=== PATIENT | female | born 1970 | race Caucasian/White ===

== ENCOUNTER 2019-08-02 02:45 | Emergency (ER) | payer SELFPAY ==
[~2019-08-02] VITALS: Ht 146 cm; Wt 156.0 kg
--- OUTSIDE RECORDS SUMMARY | 2019-08-02 02:53 | XMS REPORT | Continuity of Care Document ---
Author Organization Unknown Address Unknown Phone Unavailable Allergies There is no data. Medications Medication Packaging Start Date St op Date Route Dosage Sig KETOROLAC INJ, 60 MG (TORADOL) 04/12/2018 04/12/2018 INTRAMUSCULAR 1 Problems Date Dx Coded Attending Type Code Diagnosis Diagnosed By 04/12/2018 SARMAD KELLY [id number] Acute pain due to trauma 04/12/2018 SARMAD KELLY [id number] Pain in left knee Procedures There is no data. Results Test Result Range PDM - 09 PANEL (PROFILE 1) - 05/04/18 10 :21 Prescribed Drug 1 Percocet(TM) NRG Creatinine 48.2 mg/dL > or = 20.0 pH 6.19 4.5 - 9.0 Oxidant NEGATIVE mcg/mL <200 Amphetamines POSITIVE ng/mL <500 Benzodiazepines NEGATIVE ng/mL <100 medMATCH Benzodiazepines CONSISTENT NRG Marijuana Metabolite POSITIVE ng/mL <20 Cocaine Metabolite NEGATIVE ng/mL <150 medMATCH Cocaine Metab CONSISTENT NRG Opiates NEGATIVE ng/mL <100 medMATCH Opiates CONSISTENT NRG Oxycodone NEGATIVE ng/mL <100 medMATCH Oxycodone INCONSISTENT NRG COMMENT NRG Amphetamine 649 ng/mL <250 medMATCH Amphetamine INCONSISTENT NRG Methamphetamine NEGATIVE ng/mL <250 medMATCH Methamphetamine CONSISTENT NRG Marijuana Metabolite 55 ng/mL <5 medMATCH Marijuana Metab INCONSISTENT N RG Barbiturates NEGATIVE ng/mL <300 medMATCH Barbiturates CONSISTENT NRG Methadone Metabolite NEGATIVE ng/mL <100 medMATCH Methadone Metab CONSISTENT NRG Phencyclidine NEGATIVE ng/mL <25 medMATCH Phencyclidine CONSISTENT NRG PDM - 09 PANEL (PROFILE 1) - 07/17/18 13 :19 Creatinine 150.6 mg/dL > or = 20.0 pH 6.87 4.5 - 9.0 Oxidant NEGATIVE mcg/mL <200 Amphetamines POSITIVE ng/mL <500 Benzodiazepines NEGATIVE CONFIRMED ng/mL <100 Marijuana Metabolite POSITIVE ng/mL <20 Cocaine Metabolite NEGATIVE ng/mL <150 medMATCH Cocaine Metab CONSISTENT NRG Opiates NEGATIVE CONFIRMED ng/mL <100 Oxycodone POSITIVE ng/mL <100 COMMENT NRG Amphetamine 4474 ng/mL <250 medMATCH Amphetamine INCONSISTENT NRG Methamphetamine NEGATIVE ng/mL <250 medMATCH Methamphetamine CONSISTENT NRG Alphahydroxyalprazolam NEGATIVE ng/mL <25 medMATCH aOH alprazolam CONSISTENT NRG Alphahydroxymidazolam NEGATIVE ng/mL < 50 medMATCH aOH midazolam CONSISTENT NRG Alphahydroxytriazolam NEGATIVE ng/mL < 50 medMATCH aOH triazolam CONSISTENT NRG Aminoclonazepam NEGATIVE ng/mL <25 medMATCH Aminoclonazepam CONSISTENT NRG Hydroxyethylflurazepam NEGATIVE ng/mL <50 medMATCH OH,Et flurazepam CONSISTENT NR G Lorazepam NEGATIVE ng/mL <50 medMATCH Lorazepam CONSISTENT NRG Nordiazepam NEGATIVE ng/mL <50 medMATCH Nordiazepam CONSISTENT NRG Oxazepam NEGATIVE ng/mL <50 medMATCH Oxazepam CONSISTENT NRG Temazepam NEGATIVE ng/mL <50 medMATCH Temazepam CONSISTENT NRG Codeine NEGATIVE ng/mL <50 medMATCH Codeine CONSISTENT NRG Hydrocodone NEGATIVE ng/mL <50 medMATCH Hydrocodone CONSISTENT NRG Hydromorphone NEGATIVE ng/mL <50 medMATCH Hydromorphone CONSISTENT NRG Morphine NEGATIVE ng/mL <50 medMATCH Morphine CONSISTENT NRG Norhydrocodone NEGATIVE ng/mL <50 medMATCH Norhydrocodone CONSISTENT NRG Marijuana Metabolite 19 ng/mL <5 medMATCH Marijuana Metab INCONSISTENT N RG Noroxycodone 3125 ng/mL <50 medMATCH Noroxycodone INCONSISTENT NRG Oxycodone 1409 ng/mL <50 medMATCH Oxycodone INCONSISTENT NRG Oxymorphone 990 ng/mL <50 medMATCH Oxymorphone INCONSISTENT NRG Barbiturates NEGATIVE ng/mL <300 medMATCH Barbiturates CONSISTENT NRG Methadone Metabolite NEGATIVE ng/mL <100 medMATCH Methadone Metab CONSISTENT NRG Phencyclidine NEGATIVE ng/mL <25 medMATCH Phencyclidine CONSISTENT NRG ESR/SED RATE - 07/17/18 14:59 SED RATE BY MODIFIED WESTERGREN 31 mm/h < OR = 20 RA (RHEUMATOID) FACTOR - 07/17/18 14:59 RHEUMATOID FACTOR 55 IU/mL <14 GARRETT - 07/17/18 14:59 GARRETT SCREEN, IFA NEGATIVE NEGATIVE VITAMIN B12 - 07/17/18 14:59 VITAMIN B12 419 pg/mL 200-1100 VITAMIN D, 25-H - 07/17/18 14:59 VITAMIN D,25-OH,TOTAL,IA 14 ng/mL 30-10 0 VITAMIN B1 (THIAMINE) - 07/17/18 14:59 VITAMIN B1 (THIAMINE), BLOOD, LC/MS/MS 128 nmol/L 78-185 VITAMIN D, 25-H - 01/23/19 08:50 VITAMIN D,25-OH,TOTAL,IA 24 ng/mL 30-10 0 PDM - 09 PANEL (PROFILE 1) - 03/01/19 13 :06 Prescribed Drug 1 Aceta w/Codeine NRG Creatinine 133.1 mg/dL > or = 20.0 pH 6.2 4.5-9.0 Oxidant NEGATIVE mcg/mL <200 Amphetamines POSITIVE ng/mL <500 Benzodiazepines NEGATIVE ng/mL <100 medMATCH Benzodiazepines CONSISTENT NRG Marijuana Metabolite POSITIVE ng/mL <20 Cocaine Metabolite NEGATIVE ng/mL <150 medMATCH Cocaine Metab CONSISTENT NRG Opiates NEGATIVE ng/mL <100 medMATCH Opiates INCONSISTENT NRG Oxycodone NEGATIVE ng/mL <100 medMATCH Oxycodone INCONSISTENT NRG COMMENT NRG Amphetamine 5598 ng/mL <250 medMATCH Amphetamine INCONSISTENT NRG Methamphetamine NEGATIVE ng/mL <250 medMATCH Methamphetamine CONSISTENT NRG Prescribed Drug 2 Percocet(TM) NRG Marijuana Metabolite 33 ng/mL <5 medMATCH Marijuana Metab INCONSISTENT N RG Barbiturates NEGATIVE ng/mL <300 medMATCH Barbiturates CONSISTENT NRG Methadone Metabolite NEGATIVE ng/mL <100 medMATCH Methadone Metab CONSISTENT NRG Phencyclidine NEGATIVE ng/mL <25 medMATCH Phencyclidine CONSISTENT NRG Encounters ACCT No. Visit Date/Time Discharge Status Pt. Type Provider Facility Loc./Unit Complaint [id number] 04/12/2018 11:52:00 04/12/2018 13:30: 00 DIS Emergency BUTHERUS, BEAU A 0 14 LEG INJURY [id number] 02/13/2019 09:00:00 02/13/2019 23:59: 59 CLS Outpatient [facility] [id number] 03/01/2019 12:40:00 Document Registration [id number] 01/23/2019 08:00:00 Document Registration [id number] 07/17/2018 14:00:00 Document Registration [id number] 07/17/2018 13:20:00 Document Registration [id number] 05/04/2018 09:20:00 Document Registration
--- NOTE | 2019-08-02 02:58 | ED Cough/URI ---
General Chief Complaint: Respiratory Problems Stated Complaint: COPD Source: patient Exam Limitations: no limitations History of Present Illness Date Seen by Provider: August 02, 2019 Time Seen by Provider: 02:45 Initial Comments The patient is an obese 49-year-old female brought in by EMS for evaluation of cough, shortness of breath, nasal congestion, headache, and fever over the last 2 days. Her primary complaint is shortness of breath. She reports a history of COPD and states that she ran out of her albuterol Nebules for her nebulizer machine several days ago. EMS gave the patient a DuoNeb treatment and she immediately felt much better. She states that she has had sinus infections in the past that gave her similar symptoms. She has been noticing some wheezing over the last few days. She uses CPAP to sleep at night. Additionally, she rep orts a history of hypertension. She is alert and oriented 4, calm, and appears to be in no distress upon arrival. She is afebrile at this time. She denies any known sick contacts. Timing/Duration: other (2 days) Severity/Quality: dry cough Prior Episodes/Possible Cause: occasional episodes Modifying Factors: Improves With Albuterol Nebulizer (with EMS helped significantly) Associated Symptoms: cough, fever/chills, headache, shortness of breath, sinus infection Allergies and Home Medications Allergies Coded Allergies: No Known Drug Allergies (Unverified , 08/02/19) Patient Home Medication List Home Medication List Reviewed: Yes Review of Systems Review of Systems Constitutional: fever EENTM: nose congestion Respiratory: cough, short of breath, wheezing Cardiovascular: no symptoms reported Gastrointestinal: no symptoms reported Genitourinary: no symptoms reported Musculoskeletal: no symptoms reported Skin: no symptoms reported Psychiatric/Neurological: No Symptoms Reported Hematologic/Lymphatic: No Symptoms Reported Immunological/Allergic: no symptoms reported All Other Systems Reviewed Negative Unless Noted: Yes Past Bukfsfo-Fijfwt-Fqmdbs Hx Past Med/Social Hx: Reviewed Nursing Past Med/Soc Hx Patient Social History Recent Foreign Travel: No Contact w/Someone Who Travel: No Physical Exam Vital Signs - First Documented 08/02/19 03:00 Temp 37.0 Pulse 119 Resp 20 B/P (MAP) 171/133 (146) O2 Delivery Room Air Capillary Refill : Height: '" Weight: lbs. oz. kg; BMI Method: General Appearance: WD/WN, no apparent distress, obese Eyes: Bilateral Eye Normal Inspection, Bilateral Eye PERRL, Bilateral Eye EOMI HEENT: PERRL/EOMI, pharynx normal, other (nasal congestion present) Neck: full range of motion, supple Respiratory: lungs clear, no respiratory distress, no accessory muscle use, decreased breath sounds, wheezing (mild) Cardiovascular: regular rate, rhythm, no edema, no murmur Gastrointestinal: normal bowel sounds, non tender, soft, no pulsatile mass Extremities: non-tender, normal inspection, no pedal edema Neurologic/Psychiatric: no motor/sensory deficits, alert, normal mood/affect, oriented x 3 Skin: normal color, warm/dry Progress/Results/Core Measures Suspected Sepsis SIRS Temperature: Pulse: Respiratory Rate: Blood Pressure / Mean: Results/Orders Micro Results Microbiology 08/02/19 Influenza Types A,B Antigen (YUVAL) - Final, Complete My Orders Orders - JOYCE MORA DO Influenza A And B Antigens (08/02/19 02:50) Chest Pa/Lat (2 View) (08/02/19 02:50) Prednisone Tablet (Deltasone Tablet) (08/02/19 03:15) Medications Given in ED Current Medications Medications Dose Ordered Sig/Anneliese Route Start Time Stop Time Status Last Admin Dose Admin Prednisone 50 mg ONCE ONCE PO 08/02/19 03:15 08/02/19 03:16 DC 08/02/19 03:21 50 MG Vital Signs/I&O 08/02/19 03:00 Temp 37.0 Pulse 119 Resp 20 B/P (MAP) 171/133 (146) O2 Delivery Room Air Capillary Refill : Progress Note : Progress Note @0335 - Influenza negative and chest x-ray shows no acute findings. Advised the patient to stop vaping. She'll go home with a prescription for albuterol nebules, azithromycin, and prednisone. Advised the patient to continue staying at home and to continue self quarantining at least for the next 2 weeks. Based on her symptoms today and chest x-ray I do not feel that she needs to be tested for the coronavirus. Advised patient to follow up with her PCP in the next 2-3 days and to return to the emergency Department immediately for new or worsening symptoms. The patient expresses verbal understanding and agreement with the plan and is stable for discharge. Departure Impression Primary Impression: Flu-like symptoms Additional Impression: COPD exacerbation Disposition: HOME, SELF-CARE Condition: Stable Departure-Patient Inst. Decision time for Depature: 03:43 Referrals: [facility] [place] Instructions: Exacerbation of COPD (DC), Viral Syndrome (DC) Add. Discharge Instructions: Take the prescribed medicines as directed. Follow-up with your doctor in the next 1-2 days. Return to the Emergency Department immediately for new or worsening symptoms. Scripts Prednisone (Prednisone) 20 Mg Tab 40 MG PO DAILY, #6 TAB 0 Refills Prov: JOYCE MORA DO 08/02/19 Azithromycin (Azithromycin) 250 Mg Tablet 250 MG PO UD, #6 TAB TAKE 2 TABLETS ON DAY ONE THEN TAKE 1 TABLET DAILY FOR FOUR MORE DAYS Prov: JOYCE MORA DO 08/02/19 Albuterol Sulfate (Albuterol Sulfate) 2.5 Mg/3 Ml Vial.neb 2.5 MG INH Q4H PRN for WHEEZING, #50 EA 1 Refill Prov: JOYCE MORA DO 08/02/19 JOYCE MORA DO August 02, 2019 02:58
[2019-08-02] MEDS ORDERED: predniSONE 20 MG TAB PO ONE (03:15)
[2019-08-02] MEDS ORDERED: PRD20T PO (03:47)
[2019-08-02] MEDS ORDERED: ALBU2.5V4 INH (03:47)
[2019-08-02] MEDS ORDERED: AZIT250T12 PO (03:47)
[2019-08-02 03:54] VITALS: BP 143/95
--- NOTE | 2019-08-02 07:55 | Diagnostic Imaging Report ---
INDICATION: Shortness of breath and fever FINDINGS: Two views of the chest demonstrate the lungs to be clear. The heart size and vascularity are normal. There are no pleural effusions. IMPRESSION: Negative chest. Dictated by: Dictated on workstation # [id number]
== END 2019-08-02 03:54 | disposition home or self-care (01) ==
LOC: ER FS 02:50
DX: J44.1 Chronic obstructive pulmonary disease with (acute) exacerbation (principal)
CPT/HCPCS: 71046; 87804

== ENCOUNTER 2019-11-16 16:02 | Emergency (ER) | payer SELFPAY ==
[~2019-11-16] VITALS: Ht 152.4 cm; Wt 158.7 kg
[~2019-11-16 16:02] MED LIST: ALBU2.5V4 INH; AZIT250T12 PO; PRD20T PO
[2019-11-16 16:13] VITALS: BP 250/124
[2019-11-16] MEDS ORDERED: IBUP-1780 PO (16:54)
--- NOTE | 2019-11-16 16:54 | ED Lower Extremity ---
General Chief Complaint: Lower Extremity Stated Complaint: RT LEG PAIN Nursing Triage Note: Patient reports she injured her right patellor tendon last winter, states she has had pain off and on. States it began hurting on Tuesday and has not improved. Nursing Sepsis Screen: No Definite Risk Source: patient History of Present Illness Date Seen by Provider: Nov 16, 2019 Time Seen by Provider: 16:30 Initial Comments Patient presents with right knee pain for the past 5 days, worse with movement. Denies any swelling. Pain worse with certain movements and worse with bending, occasionally feels like it is giving out on her. Denies any recent injury. Similar pain in the past although less than one year ago, seen at a different ER and a splint was created for her that she wore for 2 days and then discarded. Never followed up. Allergies and Home Medications Allergies Coded Allergies: No Known Drug Allergies (Unverified , 08/02/19) Home Medications Albuterol Sulfate 2.5 Mg/3 Ml Vial.neb, 2.5 MG INH Q4H PRN for WHEEZING Prescribed by: JOYCE MORA on 08/02/19346 Azithromycin 250 Mg Tablet, 250 MG PO UD TAKE 2 TABLETS ON DAY ONE THEN TAKE 1 TABLET DAILY FOR FOUR MORE DAYS Prescribed by: JOYCE MORA on 08/02/19346 Prednisone 20 Mg Tab, 40 MG PO DAILY Prescribed by: JOYCE MORA on 08/02/19346 Patient Home Medication List Home Medication List Reviewed: Yes Review of Systems Constitutional: no symptoms reported Musculoskeletal: see HPI; No back pain; joint pain (right knee); No joint swelling, No muscle pain Skin: No change in color, No lumps, No rash Psychiatric/Neurological: Denies Numbness, Denies Paresthesia, Denies Weakness Past Kpxpykl-Nqsyul-Ougogl Hx Past Med/Social Hx: Reviewed Nursing Past Med/Soc Hx Patient Social History Alcohol Use: Denies Use Recreational Drug Use: No Smoking Status: Current Everyday Smoker Type Used: Electronic/Vapor 2nd Hand Smoke Exposure: No Recent Foreign Travel: No Contact w/Someone Who Travel: No Recent Infectious Disease Expo: No Recent Hopitalizations: No Physical Abuse: No Sexual Abuse: No Mistreated: No Fear: No Seasonal Allergies Seasonal Allergies: No Past Medical History Surgeries: Yes Section, Gallbladder, Hysterectomy Respiratory: Yes COPD Cardiac: Yes Hypertension Neurological: No Genitourinary: No Gastrointestinal: No Musculoskeletal: No Endocrine: No HEENT: No Cancer: No Psychosocial: Yes Bipolar Integumentary: No Blood Disorders: No Adverse Reaction/Blood Tranf: No Physical Exam Vital Signs Vital Signs - First Documented 11/16/19 16:13 Temp 36.3 Pulse 101 Resp 16 B/P (MAP) 250/124 (166) Pulse Ox 96 O2 Delivery Room Air Capillary Refill : Less Than 3 Seconds Height, Weight, BMI Height: '" Weight: lbs. oz. kg; 68.00 BMI Method: General Appearance: WD/WN, no apparent distress Legs: right leg non-tender, right leg normal inspection, right leg normal range of motion, right leg no evidence of injury Knees: right knee normal inspection, right knee normal range of motion, right knee no evidence of injury, right knee pain (MCL) Ankles: right ankle non-tender, right ankle normal inspection, right ankle normal range of motion, right ankle no evidence of injury Feet: right foot non-tender, right foot normal inspection, right foot normal range of motion, right foot no evidence of injury Neurologic/Tendon: normal sensation, normal motor functions Neurologic/Psychiatric: no motor/sensory deficits Skin: normal color, warm/dry Progress/Results/Core Measures Results/Orders Vital Signs/I&O 11/16/19 16:13 Temp 36.3 Pulse 101 Resp 16 B/P (MAP) 250/124 (166) Pulse Ox 96 O2 Delivery Room Air Blood Pressure Mean: 166 Departure Impression Primary Impression: MCL sprain of right knee Qualified Codes: S83.411A - Sprain of medial collateral ligament of right knee, initial encounter Disposition: 01 HOME, SELF-CARE Condition: Stable Departure-Patient Inst. Decision time for Depature: 16:52 Referrals: JESUS CLARK (PCP/Family) Primary Care Physician Patient Instructions: Knee Sprain (DC) Add. Discharge Instructions: see your PCP in 2 weeks. Wear your knee splint daily and apply ice to your right knee twice daily for 20 minutes. Avoid bending your knee or squatting. All discharge instructions reviewed with patient and/or family. Voiced understanding. Scripts Ibuprofen (Ibuprofen) 800 Mg Tablet 800 MG PO Q8H PRN for PAIN, #30 TAB 0 Refills Prov: NITIN BERGER DO 11/16/19 NITIN BERGER DO Nov 16, 2019 16:54
== END 2019-11-16 17:04 | disposition home or self-care (01) ==
LOC: EDUNIT# 16:02 → ER FS 16:03
DX: S83.411A Sprain of medial collateral ligament of right knee, initial encounter (principal); J44.9 Chronic obstructive pulmonary disease, unspecified; F17.290 Nicotine dependence, other tobacco product, uncomplicated; Z79.52 Long term (current) use of systemic steroids; W19.XXXA Unspecified fall, initial encounter
CPT/HCPCS: 99283; L1830

== ENCOUNTER 2020-04-21 09:01 | Emergency (ER) | payer SELFPAY ==
[~2020-04-21] VITALS: Ht 154.9 cm; Wt 161.6 kg
[~2020-04-21 09:01] MED LIST changes: +IBUP-1780 PO
--- NOTE | 2020-04-21 09:20 | NUR ---
Patient reporting pain free after brief period of rest in ED. Pt states, "I have been rushing all day with a meeting at work and then feeling CP and some SOA. Pt's boss had someone pick her up and drive her here. The employer states please get checked out. Pt is very non-compliant in discussing no follow up with specialist she may have been referred to. Has not went to her [facility] PCP as missed follow up appts for BP checks. Pt reports taking her pysch meds but forgets her BP med as it is not in same location at her home. Discussion of pill systems requirements planner or bubble packs for reminders.
[2020-04-21] MEDS ORDERED: LABETALOL HCL 20 MG/4 ML VIAL IV ONE ×3 (09:30→12:15)
[2020-04-21] MEDS ORDERED: RT-ALBUTEROL/IPRATROPIUM 3 ML (DUONEB) VIAL INH ONE (09:30)
--- NOTE | 2020-04-21 09:40 | Diagnostic Imaging Report ---
INDICATION: Shortness of breath. COMPARISON: 08/02/2019. FINDINGS: There is cardiomegaly and mild venous congestion. There is no pleural effusion, pneumothorax, or pneumonia. The mediastinum is unremarkable. IMPRESSION: Cardiomegaly and mild central pulmonary venous congestion. Dictated by: Dictated on workstation # [id number]
--- NOTE | 2020-04-21 09:55 | NUR ---
Scanned Labetalol 20 mg at 0945 and began very slow IV push 5mg at 0955 (242/131), 5 mg at 0957 (233/122), 5 mg at 0959 (219/120), 5 mg at 1000 (213/119). Pt can not tolerate laying on ER cart as "can't breathe", "my stomach pushes up into my lungs".
[2020-04-21 10:14] LABS: BASOPHILS % (AUTO) 1 % (0-10); EOSINOPHILS % (AUTO) 3 % (0-10); HEMATOCRIT 42 % (35-52); HEMOGLOBIN 13.5 G/DL (11.5-16.0); LYMPHOCYTES # (AUTO) 1.5 X 10^3 (1.0-4.0); LYMPHOCYTES % (AUTO) 22 % (12-44); MEAN CORPUSCULAR HEMOGLOBIN 29 PG (25-34); MEAN CORPUSCULAR HGB CONC 32 G/DL (32-36); MEAN CORPUSCULAR VOLUME 90 FL (80-99); MEAN PLATELET VOLUME 11.8 FL (7.4-10.4); MONOCYTES # (AUTO) 0.5 X 10^3 (0.0-1.0); MONOCYTES % (AUTO) 7 % (0-12); NEUTROPHILS # (AUTO) 4.5 X 10^3 (1.8-7.8); NEUTROPHILS % (AUTO) 67 % (42-75); PLATELET COUNT 166 10^3/uL (130-400); WHITE BLOOD COUNT 6.7 10^3/uL (4.3-11.0)
[2020-04-21 10:15] LABS: EOSINOPHILS # (AUTO) 0.2 10^3/uL (0.0-0.3)
[2020-04-21 10:21] LABS: ALANINE AMINOTRANSFERASE 115 U/L (0-55); ALKALINE PHOSPHATASE 183 U/L (40-136); BILIRUBIN,TOTAL < 0.2 MG/DL (0.1-1.0); BUN/CREATININE RATIO 23; CALCIUM 9.3 MG/DL (8.5-10.1); CARBON DIOXIDE 23 MMOL/L (21-32); CHLORIDE 103 MMOL/L (98-107); CREATININE SERUM 0.77 MG/DL (0.60-1.30); GFR ESTIMATED > 60; GLUCOSE 281 MG/DL (70-105); POTASSIUM 4.3 MMOL/L (3.6-5.0); SODIUM 137 MMOL/L (135-145); TOTAL PROTEIN 7.2 GM/DL (6.4-8.2)
[2020-04-21 10:32] LABS: ABG BASE EXCESS 1.1 MMOL/L (-2.5-2.5); ABG OXYGEN SATURATION 95 % (94-100); ABG PCO2 45 MMHG (35-45); ABG PH 7.38 (7.37-7.43); ABG PO2 78 MMHG (79-93); ALLENS TEST YES-POS; INSPIRED O2 ROOM AIR; PATIENT TEMP 36.4; VENTILATOR NO
--- NOTE | 2020-04-21 10:40 | ED General ---
General Chief Complaint: Chest Pain Stated Complaint: CHEST PAIN | BP 248/112 Source of Information: Patient Exam Limitations: No Limitations History of Present Illness Date Seen by Provider: Apr 21, 2020 Time Seen by Provider: 09:05 Initial Comments Patient is a 50-year-old female with history of COPD, hypertension, cardiomyopathy, bipolar, anxiety, schizoaffective disorder, tobaccoism and medication noncompliance who presents with shortness of breath and hypertension. Patient states she has not taken her blood pressure medication for at least the past 3 days reports increased shortness of breath with light exertion and inability to lie flat. Denies chest pain chest tightness. Does report chronic cough and continues to smoke. Although, the patient is in the process of transitioning to vaping. She denies fever, chills, purulent cough, nausea vomiting sweats. Reports chronic leg swelling but denies unilateral leg pain. Timing/Duration: 1/2 Hour Severity: Moderate Modifying Factors: improves with Other Associated Systoms: Cough, Shortness of Air, Other Allergies and Home Medications Allergies Coded Allergies: No Known Drug Allergies (Unverified , 08/02/19) Home Medications Albuterol Sulfate 2.5 Mg/3 Ml Vial.neb, 2.5 MG INH Q4H PRN for WHEEZING Prescribed by: JOYCE MORA on 08/02/19 0347 Patient Home Medication List Home Medication List Reviewed: Yes Review of Systems Review of Systems Constitutional: see HPI EENTM: see HPI Respiratory: see HPI Cardiovascular: see HPI Gastrointestinal: see HPI Genitourinary: see HPI Musculoskeletal: see HPI Skin: see HPI Psychiatric/Neurological: See HPI, Anxiety Hematologic/Lymphatic: See HPI Immunological/Allergic: see HPI All Other Systems Reviewed Negative Unless Noted: Yes Past Zxtiret-Nkqiml-Ihvgmo Hx Past Med/Social Hx: Reviewed Nursing Past Med/Soc Hx Patient Social History Type Used: Electronic/Vapor 2nd Hand Smoke Exposure: No Recent Hopitalizations: No Seasonal Allergies Seasonal Allergies: No Past Medical History Surgeries: Yes Section, Gallbladder, Hysterectomy Respiratory: Yes COPD Cardiac: Yes Hypertension Neurological: No Genitourinary: No Gastrointestinal: No Musculoskeletal: No Endocrine: No HEENT: No Cancer: No Psychosocial: Yes Bipolar Integumentary: No Blood Disorders: No Adverse Reaction/Blood Tranf: No Physical Exam Vital Signs Vital Signs - First Documented Capillary Refill : Height, Weight, BMI Height: '" Weight: lbs. oz. kg; 68.00 BMI Method: General Appearance: Other Eyes: Bilateral Eye Normal Inspection, Bilateral Eye PERRL, Bilateral Eye EOMI HEENT: PERRL/EOMI, Normal ENT Inspection, Pharynx Normal Neck: Full Range of Motion, Normal Inspection, Supple Respiratory: Decreased Breath Sounds, Wheezing, Other ( tachypneic with conversational dyspnea) Cardiovascular: Regular Rate, Rhythm, No JVD, Other (Negative Homans signs) Gastrointestinal: Normal Bowel Sounds, Non Tender, Soft Back: Normal Inspection, No CVA Tenderness Extremity: Normal Capillary Refill Neurologic/Psychiatric: Alert Skin: Normal Color, Warm/Dry Lymphatic: No Adenopathy Focused Exam Sepsis Stage: Ruled Out Lactate Level 04/21/20 09:52: Lactic Acid Level 1.50 Lactic Acid Level Laboratory Tests Test 04/21/20 09:52 Lactic Acid Level 1.50 MMOL/L (0.50-2.00) Progress/Results/Core Measures Suspected Sepsis SIRS Temperature: Pulse: Respiratory Rate: Laboratory Tests 04/21/20 10:04: White Blood Count 6.7 Blood Pressure / Mean: 04/21/20 09:52: Lactic Acid Level 1.50 Laboratory Tests 04/21/20 09:52: Creatinine 0.77, Total Bilirubin < 0.2 04/21/20 10:04: Platelet Count 166 Results/Orders Lab Results Laboratory Tests Test 04/21/20 09:52 04/21/20 10:04 04/21/20 10:26 Range/Units Sodium Level 137 135-145 MMOL/L Potassium Level 4.3 3.6-5.0 MMOL/L Chloride Level 103 98-107 MMOL/L Carbon Dioxide Level 23 21-32 MMOL/L Anion Gap 11 5-14 MMOL/L Blood Urea Nitrogen 18 7-18 MG/DL Creatinine 0.77 0.60-1.30 MG/DL Estimat Glomerular Filtration Rate > 60 BUN/Creatinine Ratio 23 Glucose Level 281 H 70-105 MG/DL Lactic Acid Level 1.50 0.50-2.00 MMOL/L Calcium Level 9.3 8.5-10.1 MG/DL Corrected Calcium 9.3 8.5-10.1 MG/DL Total Bilirubin < 0.2 0.1-1.0 MG/DL Aspartate Amino Transf (AST/SGOT) 58 H 5-34 U/L Alanine Aminotransferase (ALT/SGPT) 115 H 0-55 U/L Alkaline Phosphatase 183 H 40-136 U/L Troponin I < 0.30 <0.30 NG/ML Pro-B-Type Natriuretic Peptide 1501.0 H <75.0 PG/ML Total Protein 7.2 6.4-8.2 GM/DL Albumin 4.0 3.2-4.5 GM/DL White Blood Count 6.7 4.3-11.0 10^3/uL Red Blood Count 4.67 4.35-5.85 10^6/uL Hemoglobin 13.5 11.5-16.0 G/DL Hematocrit 42 35-52 % Mean Corpuscular Volume 90 80-99 FL Mean Corpuscular Hemoglobin 29 25-34 PG Mean Corpuscular Hemoglobin Concent 32 32-36 G/DL Red Cell Distribution Width 14.7 H 10.0-14.5 % Platelet Count 166 130-400 10^3/uL Mean Platelet Volume 11.8 H 7.4-10.4 FL Immature Granulocyte % (Auto) 1 % Neutrophils (%) (Auto) 67 42-75 % Lymphocytes (%) (Auto) 22 12-44 % Monocytes (%) (Auto) 7 0-12 % Eosinophils (%) (Auto) 3 0-10 % Basophils (%) (Auto) 1 0-10 % Neutrophils # (Auto) 4.5 1.8-7.8 X 10^3 Lymphocytes # (Auto) 1.5 1.0-4.0 X 10^3 Monocytes # (Auto) 0.5 0.0-1.0 X 10^3 Eosinophils # (Auto) 0.2 0.0-0.3 10^3/uL Basophils # (Auto) 0.0 0.0-0.1 10^3/uL Immature Granulocyte # (Auto) 0.1 0.0-0.1 10^3/uL Blood Gas Puncture Site RT RAD Blood Gas Patient Temperature 36.4 Arterial Blood pH 7.38 7.37-7.43 Arterial Blood Partial Pressure CO2 45 35-45 MMHG Arterial Blood Partial Pressure O2 78 L 79-93 MMHG Arterial Blood HCO3 27 23-27 MMOL/L Arterial Blood Total CO2 28.0 21.0-31.0 MMOL/L Arterial Blood Oxygen Saturation 95 94-100 % Arterial Blood Base Excess 1.1 -2.5-2.5 MMOL/L Hung Test YES-POS Blood Gas Ventilator Setting NO Blood Gas Inspired Oxygen ROOM AIR My Orders Orders - VINEET SAUNDERS DO Cbc With Automated Diff (04/21/20 09:14) Comprehensive Metabolic Panel (04/21/20 09:14) Troponin I Fs (04/21/20 09:14) Probnp Fs (04/21/20 09:14) Lactic Acid Analyzer (04/21/20 09:14) Chest 1 View Ap/Pa Only (04/21/20 09:14) Labetalol Injection (Normodyne Injection (04/21/20 09:30) Albuterol/Ipra Inhalation Soln (Duoneb I (04/21/20 09:30) Svn Small Volume Nebulizer (04/21/20 09:23) Ekg Tracing (04/21/20 09:34) Arterial Blood Gas (04/21/20 10:26) Furosemide Injection (Lasix Injection) (04/21/20 10:45) Labetalol Injection (Normodyne Injection (04/21/20 10:45) Labetalol Injection (Normodyne Injection (04/21/20 12:15) Medications Given in ED Current Medications Medications Dose Ordered Sig/Anneliese Route Start Time Stop Time Status Last Admin Dose Admin Albuterol/ Ipratropium 6 ml ONCE ONCE INH 04/21/20 09:30 04/21/20 09:31 DC 04/21/20 10:29 6 ML Furosemide 40 mg ONCE ONCE IVP 04/21/20 10:45 04/21/20 10:46 DC 04/21/20 10:59 40 MG Labetalol HCl 20 mg ONCE ONCE IV 04/21/20 09:30 04/21/20 09:31 DC 04/21/20 09:45 20 MG Labetalol HCl 20 mg ONCE ONCE IV 04/21/20 10:45 04/21/20 10:46 DC 04/21/20 10:48 20 MG Labetalol HCl 20 mg ONCE ONCE IV 04/21/20 12:15 04/21/20 12:16 DC 04/21/20 12:16 20 MG Vital Signs/I&O 04/21/20 04/21/20 09:05 09:05 Temp 36.0 Pulse 90 Resp 16 B/P (MAP) 233/141 (171) Pulse Ox 96 O2 Delivery Room Air Room Air Capillary Refill : Departure Communication (Admissions) Chest x-ray: Cardiomegaly with pulmonary vascular congestion. EKG: Sinus arrhythmia with nonspecific ST-T changes Patient given labetalol, Lasix in the ED with significant diuresis and improved dyspnea. She has no longer short of breath at rest or with light exertion and can speak in complete sentences. Hospital admission recommended for further regulation of blood pressure and treatment of congestive heart failure. Patient is instructed that she is at risk of stroke, coronary disease, heart attack and but declines hospital admission at this time. She verbalized understanding risks versus benefits versus alternatives of hospital admission. She requested to be discharged home and agrees to take her home medications follow-up with her PCP. She instructed to follow-up with her primary care provider tomorrow. Return precautions reviewed. Patient verbalizes understanding agreement discharge instructions prior to departure. Impression Primary Impression: Acute congestive heart failure Additional Impressions: Accelerated hypertension Tobacco use Noncompliance with medications Disposition: HOME, SELF-CARE Condition: Improved Departure-Patient Inst. Decision time for Depature: 12:47 Referrals: JESUS CLARK (PCP) Primary Care Physician [facility] (Family) Primary Care Physician Patient Instructions: Heart Failure, Adult, High Blood Pressure (DC), Low Salt Diet Add. Discharge Instructions: Please resume all home medications, and follow strict low-salt/heart friendly diet. Follow-up with your PCP tomorrow for reevaluation of blood pressure and further evaluation of congestive heart failure. Discontinue all tobacco use. Return to the ED if new or worsening symptoms or if you change your mind regarding hospital admission. All discharge instructions reviewed with patient and/or family. Voiced understanding. VINEET SAUNDERS DO Apr 21, 2020 10:40
[2020-04-21] MEDS ORDERED: FUROSEMIDE 40 MG/4 ML INJ (LASIX) IVP ONE (10:45)
--- NOTE | 2020-04-21 10:52 | NUR ---
Scanned Labetalol 20 mg, began SIVP 5 mg @ 1052 (198/116), 5 mg at 1053 (192/95), 5 mg at 1055 (199/118), 5 mg at 1058 (210/132). Patient tolerated medication again without adverse feeling.
--- NOTE | 2020-04-21 11:20 | NUR ---
Patient assisted up to bathroom by suspending monitoring. Pt diuresed 600 ml dk urine.
--- NOTE | 2020-04-21 11:54 | NUR ---
Assisted up to bathroom, monitors suspended. Pt diuresed 700 ml nearly clear urine.
--- NOTE | 2020-04-21 12:00 | NUR ---
Dr Ahmadi to re-assess patient after return from bathroom. Plan to administer 1 more dose Labetalol to attempt diastolic under 100.
[2020-04-21] MEDS ORDERED: BUSP10TA95 (12:04)
[2020-04-21] MEDS ORDERED: Lisinopril-Hctz (12:04)
[2020-04-21] MEDS ORDERED: LISD60CA (12:04)
[2020-04-21] MEDS ORDERED: CYPR4TAB41 (12:04)
--- NOTE | 2020-04-21 12:17 | NUR ---
Labetalol 20 mg scanned at 1216, 5 mg SIVP at 1217 (203/105), 5 mg SIVP at 1219 (186/114), 5 mg SIVP at 1221 (194/106), 5 mg SIVP at 1223 (182/112)
[2020-04-21 12:59] VITALS: BP 152/76
== END 2020-04-21 12:59 | disposition home or self-care (01) ==
LOC: EDUNIT# 09:01 → ER FS 09:03
DX: I11.0 Hypertensive heart disease with heart failure (principal); I50.9 Heart failure, unspecified; J44.9 Chronic obstructive pulmonary disease, unspecified; F17.210 Nicotine dependence, cigarettes, uncomplicated; Z91.14 Patient's other noncompliance with medication regimen
CPT/HCPCS: 36415; 71045; 80053; 82805; 83605; 83880; 84484; 85025

== ENCOUNTER 2020-10-18 09:37 | Emergency (ER) | payer MEDICAID ==
[~2020-10-18 09:37] MED LIST changes: +BUSP10TA95; +CYPR4TAB41; +LISD60CA; +Lisinopril-Hctz
[2020-10-18] MEDS ORDERED: ASPIRIN 81 MG CHEW (CHILDREN'S ASA) PO ONE (10:00)
[2020-10-18 10:12] LABS: BASOPHILS % (AUTO) 1 % (0-10); EOSINOPHILS % (AUTO) 4 % (0-10); HEMATOCRIT 39 % (35-52); HEMOGLOBIN 12.5 G/DL (11.5-16.0); LYMPHOCYTES % (AUTO) 25 % (12-44); MEAN CORPUSCULAR HEMOGLOBIN 30 PG (25-34); MEAN CORPUSCULAR HGB CONC 32 G/DL (32-36); MEAN CORPUSCULAR VOLUME 93 FL (80-99); MEAN PLATELET VOLUME 11.5 FL (7.4-10.4); MONOCYTES % (AUTO) 8 % (0-12); NEUTROPHILS % (AUTO) 62 % (42-75); PLATELET COUNT 198 10^3/uL (130-400); WHITE BLOOD COUNT 6.6 10^3/uL (4.3-11.0)
[2020-10-18 10:13] LABS: BASOPHILS # (AUTO) 0.1 10^3/uL (0.0-0.1); EOSINOPHILS # (AUTO) 0.2 10^3/uL (0.0-0.3); LYMPHOCYTES # (AUTO) 1.6 X 10^3 (1.0-4.0); MONOCYTES # (AUTO) 0.6 X 10^3 (0.0-1.0); NEUTROPHILS # (AUTO) 4.1 X 10^3 (1.8-7.8)
[2020-10-18] MEDS ORDERED: ALPRAZolam 0.25 MG (XANAX) TAB PO ONE (10:15)
--- NOTE | 2020-10-18 10:16 | ED Chest Pain ---
General Chief Complaint: Chest Pain Stated Complaint: CHEST PAIN Source: patient Exam Limitations: no limitations History of Present Illness Date Seen by Provider: Oct 18, 2020 Time Seen by Provider: 09:39 Initial Comments Here with report of upper chest tightness that is more on the left side and radiates to her neck. Onset about an hour to hour and a half ago. Is quite anxious. She did just quit smoking 5 days ago as well as vaping. She is obese and has had evaluation for surgery for that to aid in weight loss but they will not do the surgery evaluation until she has quit smoking for at least 30 days. This is why she quit. Has history of hypertension. She reports taking her medications as directed. She arrives hypertensive and anxious. She believes that is related to the stopping smoking. Denies nausea, vomiting, sweating, w eakness or breathing problems. She does have a cough that she attributes to quitting smoking. She has had both her Covid vaccines in July. No known exposure to Covid. Timing/Duration: 1-3 hours Severity/Quality: mild, tightness Location: central Radiation: neck Activities at Onset: none Prior CP/Workup: no prior chest pain Modifying Factors: improves with rest ASA po QM CONSULTANT: No NTG SL QM CONSULTANT: No Associated Symptoms: No abdominal pain, No back pain, No diaphoresis, No dizziness, No fever/chills, No heartburn, No nausea/vomiting, No shortness of br eath, No weakness Allergies and Home Medications Allergies Coded Allergies: No Known Drug Allergies (Unverified , 08/02/19) Home Medications Albuterol Sulfate 2.5 Mg/3 Ml Vial.neb, 2.5 MG INH Q4H PRN for WHEEZING Prescribed by: JOYCE MORA on 08/02/19 0347 Patient Home Medication List Home Medication List Reviewed: Yes Review of Systems Review of Systems Constitutional: see HPI; No chills, No fever EENTM: No Symptoms Reported Respiratory: Denies Cough, Denies Shortness of Air Cardiovascular: Chest Pain; Denies Palpitations Gastrointestinal: No Symptoms Reported Genitourinary: No Symptoms Reported Musculoskeletal: no symptoms reported All Other Systems Reviewed Negative Unless Noted: Yes Past Izyzmew-Klfyti-Nefhzk Hx Patient Social History Tobacco Use?: Yes Smoking Status: Former Smoker Substance use?: No Alcohol Use?: No Seasonal Allergies Seasonal Allergies: No Past Medical History Surgeries: Yes Section, Gallbladder, Hysterectomy Respiratory: Yes COPD Cardiac: Yes Hypertension Neurological: Yes (RLS) M[employer]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 oz. kg; 67.00 BMI Method: General Appearance: No Apparent Distress, WD/WN HEENT: PERRL/EOMI, Pharynx Normal Neck: Non Tender, Supple Respiratory: Lungs Clear, Normal Breath Sounds Cardiovascular: Regular Rate, Rhythm, No Murmur Gastrointestinal: Non Tender, Soft Extremity: Normal Range of Motion, Non Tender Neurologic/Psychiatric: Alert, Oriented x3 Skin: Normal Color, Warm/Dry Progress/Results/Core Measures Results/Orders Lab Results Laboratory Tests Test 10/18/20 09:58 10/18/20 10:47 10/18/20 11:56 Range/Units White Blood Count 6.6 4.3-11.0 10^3/uL Red Blood Count 4.17 L 4.35-5.85 10^6/uL Hemoglobin 12.5 11.5-16.0 G/DL Hematocrit 39 35-52 % Mean Corpuscular Volume 93 80-99 FL Mean Corpuscular Hemoglobin 30 25-34 PG Mean Corpuscular Hemoglobin Concent 32 32-36 G/DL Red Cell Distribution Width 14.3 10.0-14.5 % Platelet Count 198 130-400 10^3/uL Mean Platelet Volume 11.5 H 7.4-10.4 FL Immature Granulocyte % (Auto) 0 % Neutrophils (%) (Auto) 62 42-75 % Lymphocytes (%) (Auto) 25 12-44 % Monocytes (%) (Auto) 8 0-12 % Eosinophils (%) (Auto) 4 0-10 % Basophils (%) (Auto) 1 0-10 % Neutrophils # (Auto) 4.1 1.8-7.8 X 10^3 Lymphocytes # (Auto) 1.6 1.0-4.0 X 10^3 Monocytes # (Auto) 0.6 0.0-1.0 X 10^3 Eosinophils # (Auto) 0.2 0.0-0.3 10^3/uL Basophils # (Auto) 0.1 0.0-0.1 10^3/uL Immature Granulocyte # (Auto) 0.0 0.0-0.1 10^3/uL Sodium Level 140 135-145 MMOL/L Potassium Level 4.8 3.6-5.0 MMOL/L Chloride Level 103 98-107 MMOL/L Carbon Dioxide Level 28 21-32 MMOL/L Anion Gap 9 5-14 MMOL/L Blood Urea Nitrogen 16 7-18 MG/DL Creatinine 0.96 0.60-1.30 MG/DL Estimat Glomerular Filtration Rate 62 BUN/Creatinine Ratio 17 Glucose Level 128 H 70-105 MG/DL Calcium Level 10.1 8.5-10.1 MG/DL Corrected Calcium 10.0 8.5-10.1 MG/DL Magnesium Level 1.7 1.6-2.4 MG/DL Total Bilirubin 0.2 0.1-1.0 MG/DL Aspartate Amino Transf (AST/SGOT) 63 H 5-34 U/L Alanine Aminotransferase (ALT/SGPT) 95 H 0-55 U/L Alkaline Phosphatase 113 40-136 U/L Myoglobin 38.4 10.0-92.0 NG/ML Troponin I < 0.30 < 0.30 <0.30 NG/ML Total Protein 7.0 6.4-8.2 GM/DL Albumin 4.1 3.2-4.5 GM/DL Prothrombin Time 12.9 12.2-14.7 SEC INR Comment 0.9 0.8-1.4 Activated Partial Thromboplast Time 26 24-35 SEC My Orders Orders - ANNEMARIE FUNK MD Cbc With Automated Diff (10/18/20 09:50) Magnesium (10/18/20 09:50) Chest 1 View Ap/Pa Only (10/18/20 09:50) Ekg Tracing (10/18/20 09:50) Comprehensive Metabolic Panel (10/18/20 09:50) Myoglobin Serum (10/18/20 09:50) Protime With Inr (10/18/20 09:50) Partial Thromboplastin Time (10/18/20 09:50) O2 (10/18/20 09:50) Monitor-Rhythm Ecg Trace Only (10/18/20 09:50) Lipid Panel (10/19/20 06:00) Aspirin Chewable Tablet (Baby Aspirin Ch (10/18/20 10:00) Ed Iv/Invasive Line Start (10/18/20 09:50) Troponin I Fs (10/18/20 09:50) Alprazolam Tablet (Xanax Tablet) (10/18/20 10:15) Alprazolam Tablet (Xanax Tablet) (10/18/20 10:31) Alprazolam Tablet (Xanax Tablet) (10/18/20 10:35) Troponin I Fs (10/18/20 11:47) Medications Given in ED Current Medications Medications Dose Ordered Sig/Anneliese Route Start Time Stop Time Status Last Admin Dose Admin Alprazolam 0.5 mg ONCE ONCE PO 10/18/20 10:15 10/18/20 10:16 DC 10/18/20 10:41 0.5 MG Aspirin 324 mg ONCE ONCE PO 10/18/20 10:00 10/18/20 10:01 DC 10/18/20 10:40 324 MG Vital Signs/I&O 10/18/20 09:40 O2 Delivery Room Air Progress Progress Note : Progress Note Seen and evaluated. Chest pain protocol initiated. Patient is quite anxious. Xanax 0.5 mg p.o. ordered. Aspirin 324 milligrams p.o. ordered. Monitor patient. 1200: Patient doing much better. Repeat troponin ordered. Monitor patient. 1302: Amlodipine 5 mg tablet p.o. ordered. Repeat troponin negative. Patient having significant issues with chest pain. She will follow up with her doctor this week for recheck and further evaluation and to recheck her blood pressure. We will prescribe 2 weeks of the amlodipine 5 mg tablets that can be adjusted as needed. Discharged home with return precautions. Patient and family verbalized understanding of instructions and agreement with plan. Initial ECG Impression Date: Oct 18, 2020 Initial ECG Impression Time: 09:42 Initial ECG Rate: 81 Initial ECG Rhythm: Normal Sinus Comment Sinus rhythm with PVC. Normal axis. No evidence of ST elevation [place]. Similar to previous of 04/21/2020. Interpreted by me. Diagnostic Imaging Diagonstic Imaging: Xray Plain Films/CT/US/NM/MRI: chest Comments [facility]. [place], [place] NAME: ZORA GRIMALDO [facility] REC#: [id number] PT STATUS: REG ER : 1970 PHYSICIAN: ANNEMARIE FUNK MD ADMIT DATE: 10/18/20/ER FS Draft Date of Exam:10/18/20 CHEST 1 VIEW AP/PA ONLY INDICATION: Chest pain Portable AP view of the chest is obtained with comparison made to study of 04/21/2020. Heart size and pulmonary vascularity are at the upper limits of normal. No pneumothorax or consolidation is identified. There is no significant pleural fluid or overt pulmonary edema. IMPRESSION: Heart size and pulmonary vascularity are at the upper limits of normal. Otherwise no acute abnormality seen. Dictated on workstation # [id number] Dict: 10/18/20 1039 Trans: 10/18/20 1047 CV [id number] Interpreted by: SHANTELLE SHAHID MD Electronically signed by: Departure Impression Primary Impression: Chest pain Qualified Codes: R07.9 - Chest pain, unspecified Additional Impression: Uncontrolled hypertension Disposition: HOME, SELF-CARE Condition: Stable Departure-Patient Inst. Decision time for Depature: 13:03 Referrals: IRIS HOPE APRN (PCP) Primary Care Physician [facility] (Family) Primary Care Physician Patient Instructions: High Blood Pressure ED, Chest Pain (DC) Add. Discharge Instructions: All discharge instructions reviewed with patient and/or family. Voiced understanding. Take your previously prescribed medications as directed. Start new medication tomorrow. Follow-up with your doctor this week for recheck and further evalu ation and to recheck your blood pressure. Monitor your blood pressure daily after taking your medicines. Take that log with you to your doctor's appointment. Return for worse pain, fever, vomiting, weakness, breathing problems or other concerns as needed. Continue to stop smoking. Scripts Amlodipine Besylate (Amlodipine Besylate) 5 Mg Tablet 5 MG PO DAILY, #14 TAB Prov: ANNEMARIE FUNK MD 10/18/20 Copy Copies To 1: GAGE PACHECO MD, TIMOTHY D MD Oct 18, 2020 10:16
[2020-10-18] MEDS ORDERED: ALPRAZolam 0.25 MG (XANAX) TAB ONE ×2 (10:31→10:35)
[2020-10-18 10:35] LABS: CALCIUM 10.1 MG/DL (8.5-10.1); CREATININE SERUM 0.96 MG/DL (0.60-1.30); POTASSIUM 4.8 MMOL/L (3.6-5.0)
[2020-10-18 10:36] LABS: ALBUMIN 4.1 GM/DL (3.2-4.5); BILIRUBIN,TOTAL 0.2 MG/DL (0.1-1.0); MAGNESIUM 1.7 MG/DL (1.6-2.4)
--- NOTE | 2020-10-18 10:47 | Diagnostic Imaging Report ---
INDICATION: Chest pain Portable AP view of the chest is obtained with comparison made to study of 04/21/2020. Heart size and pulmonary vascularity are at the upper limits of normal. No pneumothorax or consolidation is identified. There is no significant pleural fluid or overt pulmonary edema. IMPRESSION: Heart size and pulmonary vascularity are at the upper limits of normal. Otherwise no acute abnormality seen. Dictated by: Dictated on workstation # [id number]
[2020-10-18 11:30] LABS: INR 0.9 (0.8-1.4); PROTHROMBIN TIME PATIENT 12.9 SEC (12.2-14.7)
[2020-10-18] MEDS ORDERED: AMLO-250 PO (13:06)
[2020-10-18] MEDS ORDERED: amLODIPine 5 MG (NORVASC) TAB PO ONE (13:15)
[2020-10-18 13:35] VITALS: BP 155/98
== END 2020-10-18 13:35 | disposition home or self-care (01) ==
LOC: EDUNIT# 09:37 → ER FS 09:38
DX: I10 Essential (primary) hypertension (principal); J44.9 Chronic obstructive pulmonary disease, unspecified; E66.01 Morbid (severe) obesity due to excess calories; Z68.44 Body mass index [BMI] 60.0-69.9, adult; Z87.891 Personal history of nicotine dependence; Z79.899 Other long term (current) drug therapy
CPT/HCPCS: 36415; 71045; 80053; 83735; 83874; 84484; 85025; 85610; 85730; 93041

== ENCOUNTER → 2021-02-18 | Outpatient (CLI) | payer MEDICAID ==
[~2021-02-18] MED LIST changes: +AMLO-250 PO; +CATHETER FLUSH 10 ML SYR IV PRN; +REGADENOSON 0.4 MG/5 ML SYR (LEXISCAN) IV ONE
[2021-02-18 13:10] VITALS: BP 184/114
[2021-02-18 13:14] VITALS: BP 207/124
[2021-02-18 13:17] VITALS: BP 194/118
--- NOTE | 2021-02-18 15:31 | Cardiology Stress Test Report ---
Stress Test Report Date of Procedure/Referring: Date of Procedure: Feb 18, 2021 Maggy Atwood Admitting Physician Gustabo Lucero Aprn Indications: HTN Baseline Heart Rate: 89 Baseline Blood Pressure: Blood Pressure Systolic: 194 Blood Pressure Diastolic: 118 Baseline Vitals Vital Signs Date Time Temp Pulse Resp B/P (MAP) Pulse Ox O2 Delivery O2 Flow Rate FiO2 02/18/21 13:10 93 18 184/114 (137) 97 Room Air Baseline EKG: Baseline EKG: NSR Summary After explaining the procedure to the patient, she signed a consent and then brought to the stress nuclear laboratory. Patient received 0.4 mg Lexiscan for stress test, ECG, heart rate and blood pressure were monitored continuously. Resting and stress dose of radio tracer were injected, imaging was acquired and reviewed in short axis, horizontal long axis and vertical long axis views. TID: 0 SSS: 5 SDS: 5 EF: 51 1. Patient tolerated Lexiscan well 2. Diaphragmatic attenuation and breast attenuation affecting the quality of the images, there is mild decrease uptake involving the mid to apical inferior wall and mid to apical anterior wall with subtle reversibility, most probably secondary to extracardiac attenuation, unlikely to be ischemic in nature. 3. Normal left ventricular size, EF 51% GLO IVY MD Feb 18, 2021 15:31
== END ==
LOC: CARD 11:00
PROVIDERS: ATTEND Physician Assistant
DX: I11.9 Hypertensive heart disease without heart failure (principal)
CPT/HCPCS: 78452; 93017; 93306; A9502

== ENCOUNTER 2021-03-04 13:00 | Day surgery (SDC) | payer MEDICAID ==
[2021-03-04] VITALS (9 sets, daily range): BP systolic 123–178; BP diastolic 73–100
[~2021-03-04] VITALS: Ht 154.9 cm; Wt 156.0 kg
--- OUTSIDE RECORDS SUMMARY | 2021-03-04 10:57 | XMS REPORT | Clinical Summary ---
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 Active fluticasone (FLONASE) 50 Use 1 spray 0 mcg/actuation nasal spray in each nostril daily. Active ondansetron (ZOFRAN-ODT) Dissolve 8 mg 0 8 MG disintegrating on the tongue tablet every 8 (eight) hours as needed for nausea. Active rOPINIRole (REQUIP) 2 MG Take 2 mg by 0 tablet mouth nightly. Active albuterol (VENTOLIN HFA) Inhale 2 0 90 mcg/actuation HFA puffs every 6 inhaler (six) hours as needed for wheezing. Active montelukast (SINGULAIR) Take 10 mg by 0 10 mg tablet mouth nightly. Active nabumetone (RELAFEN) 500 Take 500 mg 0 MG tablet by mouth 2 (two) times a day. Active metformin (GLUCOPHAGE) Take 500 mg 0 500 mg tablet by mouth 2 (two) times a day with meals. Active lisinopriL Take 20 mg by 0 (PRINIVIL,ZESTRIL) 20 MG mouth daily. tablet Active hydroCHLOROthiazide Take 25 mg by 0 (HYDRODIURIL) 25 MG mouth daily. tablet Active furosemide (LASIX) 20 MG Take 10 mg by 0 tablet mouth daily. Half 20mg tab daily Active cyclobenzaprine Take 5 mg by 0 (FLEXERIL) 5 MG tablet mouth 3 (three) times a day as needed for muscle spasms. Active busPIRone (BUSPAR) 10 MG Take 10 mg by 0 tablet mouth 3 (three) times a day. Active atorvastatin (LIPITOR) 10 Take 10 mg by 0 MG tablet mouth daily. Active clopidogreL (PLAVIX) 75 Take 1 tablet 30 tablet 0 mg tablet (75 mg total) 1 by mouth daily. Active clopidogreL (PLAVIX) 75 Take 1 tablet 30 tablet 0 mg tablet (75 mg total) 1 by mouth daily. Active Problems Problem Noted Date Other obesity due to excess calories 12/28/2016 Essential hypertension 12/28/2016 Family History Medical History Relation Name Comments No Known Problems Brother Cancer Father Hepatitis Mother Mental illness Sister Relation Name Status Comments Brother Alive Father Mother Sister Alive Social History Date Tobacco Use Types Packs/Day Years Used Former Smoker Smokeless Tobacco: Never Used Comments Alcohol Use Standard Drinks/Week No 0 (1 standard drink = 0.6 o z pure alcohol) Sex Assigned at Date Recorded Female 10/08/2018 7:50 AM CDT Last Filed Vital Signs Reading Time Taken Comments Vital Sign 160/81 09/06/2020 2:01 PM CDT Blood Pressure 87 09/06/2020 2:01 PM CDT Pulse 37.2 C (98.9 F) 09/06/2020 2:41 PM CDT Temperature 23 09/06/2020 2:01 PM CDT Respiratory Rate 94% 09/06/2020 2:01 PM CDT Oxygen Saturation - - Inhaled Oxygen Concentration 159.2 kg (350 lb 15.6 oz) 09/06/2020 11:01 AM CDT Weight 152.4 cm (5') 09/06/2020 11:01 AM CDT Height 68.54 09/06/2020 11:01 AM CDT Body Mass Index Plan of Treatment Health Maintenance Due Date Last Done Comments Td/Tdap# 1970 Colorectal Screening via 02/28/2020 Colonoscopy Mammogram Screening 02/28/2020 Zoster Vaccine# (1 of 2) 02/28/2020 Influenza Vaccine (#1) 2020 01/23/2019, 02/08/2017 COVID-19 Vaccine (3 - 12/27/2020 06/27/2020, Booster for Moderna 05/30/2020 series) Pneumococcal Vaccine: Aged Out 05/19/2020 No longe r eligible based on patient's age to Pediatrics (0 to 5 Years) complete this topic and At-Risk Patients (6 to 64 Years) Results Not on filefrom Last 3 Months Insurance Type Payer Benefit Subscriber ID Effective Phone Address Plan / Dates Group [facility] [id number] 2016-P [id number] [facility] [address] [place], [place] [address] MEDICAID (MD) [place] [id number] 2020-P [phone] [address] MEDICAID resent [address] [place] [id number] [place],Kary L Personal/F Self [address] (Home) [place], [place] [address] Justin,Kary L Personal/F Self [address] (Home) [place], [place] [address] [place],Kary L Personal/F Self [address] [place] (Home) [place] [address] [place] russ[place] L Personal/F Self [address] [place] (Home) [place], [place] [address] Advance Directives For more information, please contact: [phone] 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 [address]
[2021-03-04 11:18] LABS: HEMATOCRIT 48 % (35-52); HEMOGLOBIN 15.9 g/dL (11.5-16.0); MEAN CORPUSCULAR HEMOGLOBIN 30 pg (25-34); MEAN CORPUSCULAR HGB CONC 33 g/dL (32-36); MEAN CORPUSCULAR VOLUME 90 fL (80-99); MEAN PLATELET VOLUME 11.6 fL (9.0-12.2); PLATELET COUNT 251 10^3/uL (130-400); WHITE BLOOD COUNT 9.2 10^3/uL (4.3-11.0)
[2021-03-04 11:29] LABS: PROTHROMBIN TIME PATIENT 13.3 SEC (12.2-14.7)
[2021-03-04 11:38] LABS: ALBUMIN 4.5 GM/DL (3.2-4.5); BILIRUBIN,TOTAL 0.4 MG/DL (0.1-1.0); CALCIUM 10.4 MG/DL (8.5-10.1); CREATININE SERUM 1.09 MG/DL (0.60-1.30); POTASSIUM 4.2 MMOL/L (3.6-5.0); TOTAL PROTEIN 8.2 GM/DL (6.4-8.2)
--- NOTE | 2021-03-04 11:43 | Diagnostic Imaging Report ---
INDICATION: Coronary artery disease. FINDINGS: The heart size and configuration are normal. There is no failure pattern, effusion, or pneumothorax. IMPRESSION: No acute appearing abnormality. Dictated by: Dictated on workstation # [id number]
[~2021-03-04 13:00] MED LIST changes: +ASPI-1238 PO; +ATOR10TA66 PO; +BUDE10.2 IH; +BUSP10TA95 PO; +CARI3CAP PO; -CATHETER FLUSH 10 ML SYR IV PRN; +CYPR4TAB41 PO; +DAPA10TA PO; +DULO60CA59 PO; +FEXO-14 PO; +FURO20TA4 PO; +HEParin (CATH LAB) 2,000 ML IV ONE; +HEParin 1000 UNIT/ML (10ML VIAL) FOR BOLUS ONE; +INSU100I10 SQ; +LIDOCAINE 1% INJ 20 ML 20 ML VIAL ONE; +LISI1TAB48 PO; +METO50TA7 PO; +MIDAZOLAM 5 MG/5 ML (VERSED) VIAL ONE; +MONT-40 PO; +NABU500T8 PO; +NITRO DRIP 25000 MCG/D5W 250 ML IV ONE; +NS IV 1000 ML 1,000 ML IV SCH; +NS IV 1000 ML 1,000 ML ONE; +POTA99TA26 PO; -REGADENOSON 0.4 MG/5 ML SYR (LEXISCAN) IV ONE; +ROPI2TAB6 PO; +SEMA0.25 SQ; +VERAPAMIL 5 MG/2 ML (CALAN) VIAL IV ONE; +ZOLP10TA PO; +fentaNYL INJ 100 MCG/2 ML AMP ONE
--- NOTE | 2021-03-04 13:43 | Discharge Inst-Post CATH ---
Discharge Inst-CATH/EP Problems Reviewed?: Yes Post Cardiac Cath/EP D/C Inst Follow Up/Plan Appointment with Dr. Clemente's office in 4 weeks <b>CARDIAC CATH/EP PROCEDURE DISCHARGE INSTRUCTIONS</b> ACTIVITY * Go Home directly and rest. * Limit activity of the leg (or wrist if it was used) for 7 days including aerobics, swimming, jogging, bicycling, etc. * Restrict stair-climbing for 7 days if possible, if not, climb up with your non-cath leg, then bring together on the same step. * Avoid lifting, pushing, pulling or excessive movement of the affected extremity for 7 days. * Customary sexual activity may be resumed after 2 days-use caution not to use a position that strains or causes pain to the affected extremity. * No driving for 24 hours. * NO SMOKING. * Avoid straining for bowel movements for 7 days. * Gentle walking on level ground is allowed. * Returning to work will depend on the type of procedure and the results. Your doctor will discuss this with you. CALL YOUR DOCTOR FOR ANY OF THE FOLLOWING: *If bleeding from the puncture site occurs- Apply gentle pressure to site with clean cloth and call your doctor or EMS. * If a knot or lump forms under the skin, increases in size, or causes pain. * If bruising appears to be worsening or moving further down your leg instead of disappearing. * Temperature above 101 F. CARE OF YOUR GROIN INCISION; * Bruising or purple discoloration of the skin near the puncture site is common. * You may shower only, no bathtub bathing for 5 days. Be careful to avoid slipping as your leg may feel stiff. * If a closure device was used on your femoral artery, please see the attached guide regarding care of the device and your leg. * Leave dressing on FOR 24 hours. CARE OF YOUR WRIST INCISION; * Bruising or purple discoloration of the skin near the puncture site is common. * You may shower. * DO NOT submerge wrist. * Leave dressing on FOR 24 hours. GLO CLEMENTE MD Mar 04, 2021 13:43
[2021-03-04] MEDS ORDERED: NS IV 1000 ML 1,000 ML IV SCH (13:45)
--- NOTE | 2021-03-04 13:46 | Cardiac Cath Report ---
Cardiac Cath Report Physician (s)/Medical Parasitologist (s) Physician GLO IVY MD Pre-Procedure Diagnosis Pre-Procedure Diagnosis: Coronary artery disease Post-Procedure Note Procedure Start Date: Mar 04, 2021 Name of Procedure: Coronary angiogram Findings/Procedure Note PROCEDURE NOTE: 51-year-old lady with history of hypertension, hyperlipidemia, had an abnormal stress test with anterior wall ischemia, scheduled for cardiac catheterization possible PTCA. After explaining the procedure to the patient, all pros and cons were explained, all questions were answered. The patient signed the consent and then she was placed on the cardiac catheterization laboratory. Groin was prepped SL fashion local anesthesia was used. Sheath placed in the right radial artery, G[place]den catheter was advanced and engaged the left coronary system, then I exchanged it and used Cosme right catheter and engaged the right coronary system. Angiogram was done. At the end of the procedure the sheath was removed. Vascular band was used FINDINGS: ANATOMY: Left Main is free of obstructive disease Left Anterior Descending has mild disease in the diagonal artery nonobstructive disease Left Circumflex has mild disease nonobstructive disease Right Coronary Artery has mild disease nonobstructive disease CONCLUSION: 1. Mild coronary artery disease nonobstructive disease DISCUSSION AND RECOMMENDATION: Medical therapy is recommended no intervention is needed Anesthesia Type: Conscious Sedation Estimated blood loss (mL): 15 ml Contrast Amount: 40 ml Total Radiation Dose: 596 mGy Post-Procedure Diagnosis Post-operative diagnosis: Chest pain Coronary artery disease Hypertension Hyperlipidemia GLO IVY MD Mar 04, 2021 13:46
== END 2021-03-04 16:40 | disposition home or self-care (01) ==
LOC: SDC 14:10 → CATH 16:40
PROVIDERS: ATTEND Internal Medicine Cardiovascular Disease
DX: I25.10 Atherosclerotic heart disease of native coronary artery without angina pectoris (principal); I10 Essential (primary) hypertension; E78.2 Mixed hyperlipidemia; E11.9 Type 2 diabetes mellitus without complications; Z79.899 Other long term (current) drug therapy; Z87.891 Personal history of nicotine dependence; Z86.73 Personal history of transient ischemic attack (TIA), and cerebral infarction without residual deficits; Z79.4 Long term (current) use of insulin; Z79.84 Long term (current) use of oral hypoglycemic drugs; Z11.2 Encounter for screening for other bacterial diseases
CPT/HCPCS: 71045; 80053; 80061; 85027; 85610; 85730; 87081; 93454; C1894; 36415

== ENCOUNTER 2021-05-16 23:32 | Emergency (ER) | payer MEDICAID ==
[~2021-05-16 23:32] MED LIST changes: -HEParin (CATH LAB) 2,000 ML IV ONE; -HEParin 1000 UNIT/ML (10ML VIAL) FOR BOLUS ONE; -LIDOCAINE 1% INJ 20 ML 20 ML VIAL ONE; -MIDAZOLAM 5 MG/5 ML (VERSED) VIAL ONE; -NITRO DRIP 25000 MCG/D5W 250 ML IV ONE; -NS IV 1000 ML 1,000 ML IV SCH; -NS IV 1000 ML 1,000 ML ONE; -VERAPAMIL 5 MG/2 ML (CALAN) VIAL IV ONE; -fentaNYL INJ 100 MCG/2 ML AMP ONE
[2021-05-16] MEDS ORDERED: ONDANSETRON 4 MG/2 ML (SDV) Z0FRAN IVP STA (23:37)
[2021-05-16] MEDS ORDERED: NS IV 1000 ML 1,000 ML IV STA (23:37)
[2021-05-16] MEDS ORDERED: fentaNYL INJ 100 MCG/2 ML AMP IVP STA (23:43)
[2021-05-16] MEDS ORDERED: PANTOPRAZOLE 40 MG (PROTONIX) VIAL IV STA (23:43)
[2021-05-16 23:48] LABS: BASOPHILS % (AUTO) 0 % (0-10); EOSINOPHILS % (AUTO) 0 % (0-10); HEMATOCRIT 45 % (35-52); HEMOGLOBIN 14.9 g/dL (11.5-16.0); LYMPHOCYTES # (AUTO) 0.9 10^3/uL (1.0-4.0); LYMPHOCYTES % (AUTO) 8 % (12-44); MEAN CORPUSCULAR HEMOGLOBIN 30 pg (25-34); MEAN CORPUSCULAR HGB CONC 33 g/dL (32-36); MEAN CORPUSCULAR VOLUME 90 fL (80-99); MEAN PLATELET VOLUME 11.5 fL (9.0-12.2); MONOCYTES # (AUTO) 0.4 10^3/uL (0.0-1.0); MONOCYTES % (AUTO) 4 % (0-12); NEUTROPHILS # (AUTO) 9.9 10^3/uL (1.8-7.8); NEUTROPHILS % (AUTO) 87 % (42-75); PLATELET COUNT 191 10^3/uL (130-400); WHITE BLOOD COUNT 11.4 10^3/uL (4.3-11.0)
[2021-05-16 23:49] LABS: BILIRUBIN,URINE NEGATIVE (NEGATIVE); CLARITY,URINE CLEAR; COLOR,URINE YELLOW; GLUCOSE, URINE (UA) 3+ (NEGATIVE); KETONES,URINE 2+ (NEGATIVE); LEUKOCYTE ESTERASE ,URINE NEGATIVE (NEGATIVE); NITRITE,URINE NEGATIVE (NEGATIVE); PROTEIN,URINE 2+ (NEGATIVE)
--- NOTE | 2021-05-16 23:49 | ED GI ---
General Stated Complaint: ABD PAIN;VOMITTING Source of Information: Patient History of Present Illness Date Seen by Provider: May 16, 2021 Time Seen by Provider: 23:34 Initial Comments 51-year-old female presenting with complaints of epigastric abdominal pain had nausea and vomiting since around 3 PM. She states that she had eaten a [place] sandwich from a local restaurant in [place]. After that she started having the nausea and vomiting. She had thrown up so much that she did not have anything left to throw up. She has been able to sip on water in the last few hours but if she tries to drink anything more than just a sip it causes more pain. She denies having any diarrhea. She has no pain with urination. She has had previous gallbladder surgery. Timing/Duration: Other (Since around 1500 this afternoon) Severity/Quality: Severe, Cramping, Sharp Location: Epigastric Radiation: Epigastric Modifying Factors: Worsens With Eating Associated Symptoms: No Back Pain, No Chest Pain, No Diaphoresis, No Fever/Chills, No Fatigue, No Headache, No Heartburn; Nausea/Vomiting; No Rash, No Shortness of Air, No Swelling/Mass in Abdomen, No Syncope, No Weakness Allergies and Home Medications Allergies Coded Allergies: No Known Drug Allergies (Unverified , 08/02/19) Patient Home Medication List Home Medication List Reviewed: Yes Aspirin (Aspirin EC) 81 Mg Tablet.dr, 81 MG PO DAILY, (Reported) Entered as Reported by: MARCELA CROUCH on 03/04/21 1154 Atorvastatin Calcium (Atorvastatin Calcium) 10 Mg Tablet, 10 MG PO DAILY, (Reported) Entered as Reported by: MARCELA CROUCH on 03/04/21 115 Budesonide/Formoterol Fumarate (Symbicort 160-4.5 Mcg Inhaler) 10.2 Gm Hfa.aer.ad, 2 PUFF IH DAILY, (Reported) Entered as Reported by: MARCELA CROUCH on 03/04/21 115 Buspirone HCl (Buspirone HCl) 10 Mg Tablet, 10 MG PO BID PRN for ANXIETY, (Reported) Entered as Reported by: MARCELA CROUCH on 03/04/21 115 Cariprazine Hydrochloride (Vraylar) 3 Mg Capsule, 3 MG PO DAILY, (Reported) Entered as Reported by: MARCELA CROUCH on 03/04/21 115 Cyproheptadine HCl (Cyproheptadine HCl) 4 Mg Tablet, 8 MG PO HS, (Reported) Entered as Reported by: MARCELA CROUCH on 03/04/21 115 Dapagliflozin Propanediol (Farxiga) 10 Mg Tablet, 10 MG PO DAILY, (Reported) Entered as Reported by: MARCELA CROUCH on 03/04/21 115 Dicyclomine HCl (Dicyclomine HCl) 20 Mg Tablet, 20 MG PO Q6H PRN for nausea/abdominal cramping Prescribed by: NEETA TREJO on 05/17/21 0106 Duloxetine HCl (Duloxetine HCl) 60 Mg Capsule.dr, 60 MG PO DAILY, (Reported) Entered as Reported by: MARCELA CROUCH on 03/04/21 115 Fexofenadine HCl (Sima Allergy) 60 Mg Tablet, 60 MG PO DAILY PRN for ALLERGIES, (Reported) Entered as Reported by: MARCELA CROUCH on 03/04/21 115 Furosemide (Furosemide) 20 Mg Tablet, 20 MG PO DAILY, (Reported) Entered as Reported by: MARCELA CROUCH on 03/04/21 115 Insulin Glargine,Hum.rec.anlog (Lantus Solostar) 100 Unit/1 Ml Insuln.pen, 10 UNIT SQ DAILY, (Reported) Entered as Reported by: MARCELA CROUCH on 03/04/21 115 Lisinopril/Hydrochlorothiazide (Lisinopril-Hctz 20-25 mg Tab) 1 Each Tablet, 1 EACH PO DAILY, (Reported) Entered as Reported by: MARCELA CROUCH on 03/04/21 115 Montelukast Sodium (Montelukast Sodium) 10 Mg Tablet, 10 MG PO DAILY, (Reported) Entered as Reported by: MARCELA CROUCH on 03/04/21 115 Nabumetone (Nabumetone) 500 Mg Tablet, 500 MG PO BID, (Reported) Entered as Reported by: MARCELA CROUCH on 03/04/21 115 Potassium Gluconate (Potassium) 99 Mg Tablet, 99 MG PO DAILY, (Reported) Entered as Reported by: MARCELA CROUCH on 03/04/21 115 Ropinirole HCl (Ropinirole HCl) 2 Mg Tablet, 2 MG PO HS, (Reported) Entered as Reported by: MARCELA CROUCH on 03/04/21 1154 Semaglutide (Ozempic) 0.25 Mg/0.2 Ml Pen.injctr, 0.25 MG SQ MON, (Reported) Entered as Reported by: MARCELA CROUCH on 03/04/21 1154 Zolpidem Tartrate (Ambien) 10 Mg Tablet, 10 MG PO HS PRN for SLEEP, (Reported) Entered as Reported by: MARCELA CROUCH on 03/04/21 1154 Review of Systems Review of Systems Constitutional: No chills, No fever EENTM: No Symptoms Reported Respiratory: No Symptoms Reported Cardiovascular: No Symptoms Reported Gastrointestinal: See HPI Genitourinary: No Symptoms Reported Musculoskeletal: no symptoms reported Skin: no symptoms reported Psychiatric/Neurological: Anxiety Past Ekoaxvn-Rffvzy-Iivdvq Hx Patient Social History Tobacco Use?: No Use of E-Cig and/or Vaping dev: No Substance use?: No Alcohol Use?: No Seasonal Allergies Seasonal Allergies: No Past Medical History Surgery/Hospitalization HX: HTN, Insulin dependent DM, COPD Surgeries: Yes Section, Gallbladder, Hysterectomy Respiratory: Yes COPD Cardiac: Yes Hypertension Neurological: Yes (RLS) 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 oz. kg; 65.01 BMI Method: General Appearance: moderate distress, obese HEENT: PERRL/EOMI, pharynx normal Neck: non-tender, full range of motion, supple, normal inspection Respiratory: chest non-tender, lungs clear, normal breath sounds Cardiovascular: normal peripheral pulses, regular rate, rhythm Gastrointestinal: normal bowel sounds, soft, no pulsatile mass; No distended, No guarding, No rebound; tenderness (Epigastric) Rectal: deferred Extremities: normal range of motion, non-tender, normal capillary refill Neurologic/Psychiatric: datapower developer II-XII nml as tested, alert, oriented x 3 Skin: normal color, warm/dry Progress/Results/Core Measures Results/Orders Lab Results Laboratory Tests Test 05/16/21 23:40 05/16/21 23:45 05/17/21 01:25 Range/Units Urine Color YELLOW Urine Clarity CLEAR Urine pH 7.0 5-9 Urine Specific [place] 1.020 1.016-1.022 Urine Protein 2+ H NEGATIVE Urine Glucose (UA) 3+ H NEGATIVE Urine Ketones 2+ H NEGATIVE Urine Nitrite NEGATIVE NEGATIVE Urine Bilirubin NEGATIVE NEGATIVE Urine Urobilinogen 0.2 < = 1.0 MG/DL Urine Leukocyte Esterase NEGATIVE NEGATIVE Urine RBC (Auto) 1+ H NEGATIVE Urine RBC 5-10 H /HPF Urine WBC 10-25 H /HPF Urine Squamous Epithelial Cells 5-10 /HPF Urine Crystals NONE /LPF Urine Bacteria TRACE /HPF Urine Casts NONE /LPF Urine Mucus NEGATIVE /LPF Urine Yeast FEW H /HPF Urine Culture Indicated YES White Blood Count 11.4 H 4.3-11.0 10^3/uL Red Blood Count 5.04 3.80-5.11 10^6/uL Hemoglobin 14.9 11.5-16.0 g/dL Hematocrit 45 35-52 % Mean Corpuscular Volume 90 80-99 fL Mean Corpuscular Hemoglobin 30 25-34 pg Mean Corpuscular Hemoglobin Concent 33 32-36 g/dL Red Cell Distribution Width 14.6 H 10.0-14.5 % Platelet Count 191 130-400 10^3/uL Mean Platelet Volume 11.5 9.0-12.2 fL Immature Granulocyte % (Auto) 1 % Neutrophils (%) (Auto) 87 H 42-75 % Lymphocytes (%) (Auto) 8 L 12-44 % Monocytes (%) (Auto) 4 0-12 % Eosinophils (%) (Auto) 0 0-10 % Basophils (%) (Auto) 0 0-10 % Neutrophils # (Auto) 9.9 H 1.8-7.8 10^3/uL Lymphocytes # (Auto) 0.9 L 1.0-4.0 10^3/uL Monocytes # (Auto) 0.4 0.0-1.0 10^3/uL Eosinophils # (Auto) 0.0 0.0-0.3 10^3/uL Basophils # (Auto) 0.0 0.0-0.1 10^3/uL Immature Granulocyte # (Auto) 0.1 0.0-0.1 10^3/uL Neutrophils % (Manual) 84 % Lymphocytes % (Manual) 11 % Monocytes % (Manual) 5 % Sodium Level 138 135-145 MMOL/L Potassium Level 4.2 3.6-5.0 MMOL/L Chloride Level 99 98-107 MMOL/L Carbon Dioxide Level 21 21-32 MMOL/L Anion Gap 18 H 5-14 MMOL/L Blood Urea Nitrogen 17 7-18 MG/DL Creatinine 0.67 0.60-1.30 MG/DL Estimat Glomerular Filtration Rate 106 BUN/Creatinine Ratio 25 Glucose Level 444 *H 70-105 MG/DL Calcium Level 10.2 H 8.5-10.1 MG/DL Corrected Calcium 10.0 8.5-10.1 MG/DL Total Bilirubin 0.3 0.1-1.0 MG/DL Aspartate Amino Transf (AST/SGOT) 23 5-34 U/L Alanine Aminotransferase (ALT/SGPT) 53 0-55 U/L Alkaline Phosphatase 152 H 40-136 U/L Total Protein 7.8 6.4-8.2 GM/DL Albumin 4.2 3.2-4.5 GM/DL Lipase 51 8-78 U/L Glucometer 241 H 70-110 MG/DL My Orders Orders - NEETA TREJO MD Comprehensive Metabolic Panel (05/16/21 23:37) Lipase (05/16/21 23:37) Ua Culture If Indicated (05/16/21 23:37) Ed Iv/Invasive Line Start (05/16/21 23:37) Cbc With Automated Diff (05/16/21 23:37) Ns Iv 1000 Ml (Sodium Chloride 0.9%) (05/16/21 23:37) Ondansetron Injection (Zofran Injectio (05/16/21 23:37) Fentanyl Inj (Sublimaze Injection) (05/16/21 23:43) Pantoprazole Injection (Protonix Injecti (05/16/21 23:43) Iohexol Injection (Omnipaque 350 Mg/Ml 1 (05/17/21 00:00) Received Contrast (Hold Metformin- Contr (05/17/21 00:00) Ns (Ivpb) (Sodium Chloride 0.9% Ivpb Bag (05/17/21 00:00) Manual Differential (05/16/21 23:45) Urine Culture (05/16/21 23:40) Metoclopramide Injection (Reglan Injecti (05/17/21 00:21) Diphenhydramine Injection (Benadryl Inje (05/17/21 00:21) Insulin (Regular) Human (Novolin R (Per (05/17/21 00:21) Morphine Injection (Morphine Injection (05/17/21 01:00) Lorazepam Injection (Ativan Injection) (05/17/21 01:00) Dicyclomine Injection (Bentyl Injection) (05/17/21 01:00) Medications Given in ED Vital Signs/I&O 05/16/21 05/17/21 23:36 01:27 Temp 36.5 Pulse 93 90 Resp 24 22 B/P (MAP) 220/108 (145) 220/108 Pulse Ox 95 95 O2 Delivery Room Air Room Air Progress Progress Note #1: Progress Note Obtain labs and urine. CT scan of the abdomen pelvis to evaluate for possible colitis, diverticulitis, enteritis, gastritis, peptic ulcer disease. Give 1 L normal saline IV fluids for hydration, Zofran 4 mg IV for nausea and vomiting, Protonix 40 mg IV for gastritis, fentanyl 50 mcg IV for pain. Progress Note #2: Time: 00:15 Progress Note CBC is stable without acute significant abnormality. Her chemistry panel does show an elevated glucose of 444. The urinalysis had a specific gravity 1.020 and had 3+ glucose and 2+ ketones. She does have some yeast and white blood cells in the urine. She had negative leukocyte esterase and negative nitrites. When patient was being taken over to CT she advised the oil processing technician that she was not wanting to have the test done because she felt it was unnecessary. Patient was taken back to her room and I discussed with her that without the CT I could not say if she had a bowel obstruction or blockage or if she had something else causing her symptoms. Patient felt like she was still having severe pain and cramping with nausea although she was continually asking for water and ice chips. She did have a glucose of 444 which is likely contributing to her dry mouth and the desire for the ice chips and water. Patient voiced understanding of one of his wanting to do with the CT scan but stated that she felt like it was secondary to her sandwich that she ate earlier. She would like something different to help with her nausea and abdominal cramping. Will try dose of Reglan along with Benadryl and give some additional insulin to help bring down her glucose. Will recheck again after she has had these medicines on board for a while to see if this may be helps control her symptoms a little more. She states the Fentanyl did not help so will defer any further narcotic as it can cause more nausea as well. Progress Note #3: Progress Note 0059 pt is tolerating ice chips and has been to the bathroom and had a bowel movement and urinated without difficulty. She states she had only minimal improvement in her symptoms with the medicines and she still had a lot of cram ping pain. Will try Morphine with Ativan and Bentyl and can prescribe bentyl for home. Encourage to follow liquid diet for 24 hours then advance to bland and then regular diabetic diet as she tolerates it. Diagnostic Imaging Diagonstic Imaging: CT Plain Films/CT/US/NM/MRI: abdomen, pelvis Comments Pt refused the study Departure Impression Primary Impression: Epigastric abdominal pain Additional Impression: Nausea and vomiting Qualified Codes: R11.14 - Bilious vomiting Disposition: HOME, SELF-CARE Condition: Stable Departure-Patient Inst. Decision time for Depature: 01:19 Referrals: IRIS HOPE APRN (PCP) Primary Care Physician [facility] (Family) Primary Care Physician Patient Instructions: Abdominal Pain, Adult ED, CLEAR LIQUID DIET ADULT/CHILD, Food Poisoning ED, Gastritis ED, Nausea and Vomiting, Adult ED Add. Discharge Instructions: Use the Bentyl (Dicyclomine) as a nausea medicine to try and help settle your stomach and it also helps with cramping and spasms. Drink liquids and follow a liquid diet for next 24 hours to allow your stomach to settle down. After this you could try advancing to bland foods and then back to your regular diabetic diet as you tolerate it. Follow up with clinic for continued concerns. Scripts Dicyclomine HCl (Dicyclomine HCl) 20 Mg Tablet 20 MG PO Q6H PRN for nausea/abdominal cramping for 5 Days, #20 TAB 0 Refills Prov: NEETA TREJO MD 05/17/21 NEETA TREJO MD May 16, 2021 23:49
[2021-05-16 23:55] LABS: BACTERIA,URINE TRACE /HPF
[2021-05-16 23:56] LABS: YEAST,URINE FEW /HPF
[2021-05-17] MEDS ORDERED: NS 100 ML (IVPB) BAG IV ONE
[2021-05-17] MEDS ORDERED: HOLD METFORMIN - RECEIVED CONTRAST 20 ML VIAL IV SCH
[2021-05-17] MEDS ORDERED: IOHEXOL 350 MG/ML 100 ML (OMNIPAQUE 350) VIAL IV ONE
[2021-05-17 00:01] LABS: LYMPHOCYTES % (MANUAL) 11 %; MONOCYTES % (MANUAL) 5 %; NEUTROPHILS % (MANUAL) 84 %
[2021-05-17 00:07] LABS: BILIRUBIN,TOTAL 0.3 MG/DL (0.1-1.0); CALCIUM 10.2 MG/DL (8.5-10.1); CREATININE SERUM 0.67 MG/DL (0.60-1.30); POTASSIUM 4.2 MMOL/L (3.6-5.0)
[2021-05-17 00:08] LABS: ALBUMIN 4.2 GM/DL (3.2-4.5); TOTAL PROTEIN 7.8 GM/DL (6.4-8.2)
[2021-05-17] MEDS ORDERED: diphenhydrAMINE 50 MG/ML INJ (BENADRYL) IVP STA (00:21)
[2021-05-17] MEDS ORDERED: METOCLOPRAMIDE INJ 10 MG/2 ML (REGLAN) IVP STA (00:21)
[2021-05-17] MEDS ORDERED: inSUlin (REGULAR) HUMAN 1 UNIT/0.01 ML (CHARGE PER UNIT) IV STA (00:21)
[2021-05-17] MEDS ORDERED: morphine INJ 10 MG/ML 1ML (SYR OR VIAL) IVP STA (01:00)
[2021-05-17] MEDS ORDERED: LORazepam INJ 2 MG/ML (ATIVAN) VIAL IVP STA (01:00)
[2021-05-17] MEDS ORDERED: DICYCLOMINE 10 MG/ML (BENTYL) 2 ML AMP IM STA (01:00)
[2021-05-17] MEDS ORDERED: DICY20TA PO (01:06)
[2021-05-17 01:27] VITALS: BP 220/108
== END 2021-05-17 01:28 | disposition home or self-care (01) ==
LOC: EDUNIT# 23:32 → ER FS 23:34
DX: R10.13 Epigastric pain (principal); R11.2 Nausea with vomiting, unspecified; E66.01 Morbid (severe) obesity due to excess calories; Z68.44 Body mass index [BMI] 60.0-69.9, adult
CPT/HCPCS: 36415; 80053; 81000; 82947; 83690; 85007; 85027; 87077; 87088; 87186; 96361; 96372; 96374; 96375

== ENCOUNTER 2021-07-10 09:43 | Outpatient (CLI) | payer MEDICAID ==
[~2021-07-10 09:43] MED LIST changes: +DICY20TA PO
== END 2021-07-10 10:10 ==
LOC: SLEEP 09:43
PROVIDERS: ATTEND Internal Medicine Cardiovascular Disease
DX: G47.30 Sleep apnea, unspecified (principal)
CPT/HCPCS: G0399

== ENCOUNTER 2021-10-14 19:57 | Outpatient (CLI) | payer MEDICAID | END 2021-10-15 06:15 | disposition home or self-care (01) | LOC: SLEEP 19:57 | PROVIDERS: ATTEND Otolaryngology Otolaryngology/Facial Plastic Surgery | DX: G47.33 Obstructive sleep apnea (adult) (pediatric) (principal) | CPT/HCPCS: 95811 ==